=== PATIENT | female | born 1985 | race American Indian/Alaskan Native ===

== ENCOUNTER 2016-07-13 05:33 | Emergency (ER) | payer OTHER ==
[2016-07-13 05:43] VITALS: BMI 25.8
[2016-07-13 05:44] VITALS: RESP 16; TEMP 97.9; O2SAT 100
[2016-07-13] MEDS ORDERED: Oxycodone/Acetaminophen 5/325 mg Tab PO STA (05:48)
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
[2016-07-13 07:08] VITALS: BP 109/72; PULSE 71
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
== END 2016-07-13 07:24 | disposition home or self-care (01) ==
LOC: ED 05:33
DX: S20.212A Contusion of left front wall of thorax, initial encounter (principal); Y04.0XXA Assault by unarmed brawl or fight, initial encounter; F17.210 Nicotine dependence, cigarettes, uncomplicated